=== PATIENT | male | born 1970 | race African-American/Black ===

== ENCOUNTER 2018-04-09 10:59 | Emergency (ER) | payer OTHER ==
[2018-04-09] MEDS: KETOROLAC 30 MG INJ IM (12:14)
== END 2018-04-09 12:35 | disposition home or self-care (01) ==
LOC: FTE 10:59
DX: S01.01XA Laceration without foreign body of scalp, initial encounter (principal); J06.9 Acute upper respiratory infection, unspecified; X58.XXXA Exposure to other specified factors, initial encounter; Y92.810 Car as the place of occurrence of the external cause
CPT/HCPCS: 96372; 99284-25

== ENCOUNTER 2018-04-11 09:32 | Emergency (ER) | payer OTHER | END 2018-04-11 10:30 | disposition home or self-care (01) | LOC: FTE 09:32 | DX: Z48.01 Encounter for change or removal of surgical wound dressing (principal) | CPT/HCPCS: 99281 ==

== ENCOUNTER 2018-11-21 01:14 | Emergency (ER) | payer OTHER ==
[2018-11-21] MEDS: DIPHTH/TET/ACEL PERTUSS (ADULT) 0.5 ML VIAL IM* (02:03)
[2018-11-21 04:52] LABS: ADD MAN DIFF? NO
[2018-11-21 04:57] LABS: BASOPHILS % 0.1 % (0.0-2.0); HEMATOCRIT 40.6 % (42.0-52.0); LYMPHOCYTES # 0.7 10^3/ul (0.8-2.9); LYMPHOCYTES % 6.1 % (15.0-51.0); MEAN CORPUSCULAR HEMOGLOBIN 25.4 pg (29.0-33.0); MEAN CORPUSCULAR VOLUME 79.3 fl (82.0-101.0); MONOCYTE # 0.5 10^3/ul (0.3-0.9); NEUTROPHIL # 10.4 10^3/ul (1.6-7.5); NEUTROPHILS % 89.5 % (39.0-77.0); PLATELET COUNT 247 10^3/UL (140-415); RED BLOOD COUNT 5.12 10^6/ul (4.70-6.10); RED CELL DISTRIBUTION WIDTH 13.4 % (11.5-14.5)
[2018-11-21 04:57] LABS: WHITE BLOOD COUNT 11.6 10^3/ul (4.8-10.8)
[2018-11-21 05:08] LABS: AMPHETAMINE/METHAMPHETAMINE NEGATIVE (NEGATIVE); BARBITURATES NEGATIVE (NEGATIVE); BENZODIAZEPINES NEGATIVE (NEGATIVE); CANNABINOIDS NEGATIVE (NEGATIVE); COCAINE NEGATIVE (NEGATIVE); OPIATES NEGATIVE (NEGATIVE)
[2018-11-21 05:15] LABS: ANION GAP 8 (5-13); BLOOD UREA NITROGEN 16 mg/dl (7-20); CALCIUM 9.3 mg/dl (8.4-10.2); CARBON DIOXIDE 29 mmol/L (21-31); CHLORIDE 102 mmol/L (97-110); Estimated GFR > 60 mL/min (>60); GLUCOSE 107 mg/dl (70-220); POTASSIUM 4.2 mmol/L (3.5-5.1); SODIUM 139 mmol/L (135-144)
== END 2018-11-21 06:42 | disposition short-term general hospital (02) ==
LOC: E/R 01:14
DX: S02.91XA Unspecified fracture of skull, initial encounter for closed fracture (principal); S02.19XA Other fracture of base of skull, initial encounter for closed fracture; S02.2XXA Fracture of nasal bones, initial encounter for closed fracture; S02.40EA Zygomatic fracture, right side, initial encounter for closed fracture; S02.40FA Zygomatic fracture, left side, initial encounter for closed fracture; Y04.0XXA Assault by unarmed brawl or fight, initial encounter; Z23 Encounter for immunization
CPT/HCPCS: 36415; 70450; 70486; 72125; 80048; 80307; 85025; 90471; 90715; 99284-25